=== PATIENT | female | born 1960 | race Caucasian/White ===

== ENCOUNTER 2018-04-22 10:49 | Day surgery (SDC) | payer BC ==
[~2018-04-22] VITALS: Ht 162.6 cm; Wt 49.8 kg
[2018-04-22] MEDS ORDERED: normal saline 1000ml 1,000 ML IV PRN (11:10)
[2018-04-22] MEDS ORDERED: NO HOME MEDS (11:25)
[2018-04-22 11:32] VITALS: BP 119/88
[2018-04-22 11:47] LABS: BASOPHILS % (AUTO) 0.5 % (0-1); EOSINOPHILS # (AUTO) 0.1 X10'3 (0-0.9); EOSINOPHILS % (AUTO) 0.9 % (0-6); HEMATOCRIT 43.1 % (35.0-45.0); HEMOGLOBIN 14.6 g/dl (12.0-16.0); LYMPHOCYTES # (AUTO) 3.6 X10'3 (1.1-4.8); MEAN CORPUSCULAR HEMOGLOBIN 32.7 PG (27.0-31.0); MEAN CORPUSCULAR HGB CONC 33.9 % (33.0-36.5); MEAN CORPUSCULAR VOLUME 96.4 FL (78-98); MEAN PLATELET VOLUME 7.6 FL (7.4-10.4); MONOCYTES # (AUTO) 0.5 X10'3 (0-0.9); MONOCYTES % (AUTO) 6.6 % (2-12); NEUTROPHILS # (AUTO) 3.6 X10'3 (1.8-7.7); PLATELET COUNT 321 X10'3 (140-440); RED BLOOD COUNT 4.47 X10'6 (4.20-5.60); RED CELL DISTRIBUTION WIDTH 12.6 % (11.5-14.5); WHITE BLOOD COUNT 7.9 X10'3 (4.5-11.0)
[2018-04-22 11:57] LABS: ALBUMIN 4.9 G/DL (3.4-5.0); ANION GAP 11 (8-16); BLOOD UREA NITROGEN 7 MG/DL (7-18); CHLORIDE 99 MMOL/L (99-107); GLUCOSE 89 MG/DL (70-104); SODIUM 137 MMOL/L (135-145); TOTAL CARBON DIOXIDE 26.6 MMOL/L (24-32); eGFR 86 ML/MIN
[2018-04-22] MEDS ORDERED: LIDOcaine 1%/PF 5ML 10 MG/ML VIAL ONE (13:03)
[2018-04-22] MEDS ORDERED: heparin sodium, porcine/PF 100unit/ml 5ML syringe ONE (13:03)
[2018-04-22] MEDS ORDERED: midazolam 2 mg/2 ml injection IV PRN (13:10)
[2018-04-22] MEDS ORDERED: fentaNYL/PF 50MCG/1 ML 2ML syringe IV PRN (13:10)
[2018-04-22] MEDS ORDERED: LIDOcaine 1%/PF 5ML 10 MG/ML VIAL SQ ONE (13:10)
[2018-04-22] MEDS ORDERED: heparin sodium, porcine/PF 100unit/ml 5ML syringe ICATH ONE (13:10)
[2018-04-22] MEDS ORDERED: midazolam 2 mg/2 ml injection ONE (13:14)
[2018-04-22] MEDS ORDERED: fentaNYL/PF 50MCG/1 ML 2ML syringe ONE (13:15)
[2018-04-22 14:15] VITALS: BP 144/71
[2018-04-22 14:30] VITALS: BP 125/62
[2018-04-22 14:50] VITALS: BP 141/87
[2018-04-22 15:05] VITALS: BP 134/70
== END 2018-04-22 15:15 | disposition home or self-care (01) ==
LOC: SSTAY O 10:49
PROVIDERS: ATTEND Radiology Diagnostic Radiology
DX: C50.912 Malignant neoplasm of unspecified site of left female breast (principal); J45.998 Other asthma; M19.90 Unspecified osteoarthritis, unspecified site; Z90.89 Acquired absence of other organs; Z98.51 Tubal ligation status; Z90.12 Acquired absence of left breast and nipple; Z72.89 Other problems related to lifestyle; Z79.899 Other long term (current) drug therapy; Z82.0 Family history of epilepsy and other diseases of the nervous system
CPT/HCPCS: 36415; 36561; 76937; 77001; 80048; 85025; 99152; 99153; A6219; C1788; C1894; J1642; J2001; J2250; J3010; J7030; A4620